=== PATIENT | male | born 1965 | race Caucasian/White ===

== ENCOUNTER 2017-05-27 19:26 | Observation (INO) | payer BC ==
[2017-05-27] MEDS ORDERED: Sodium Chloride 0.9% 1,000 ML PRIMARY IV ONE (19:29)
[2017-05-27] MEDS ORDERED: NORMAL SALINE 10 ML SYRINGE FLUSH IVP PRN ×2 (19:29→22:44)
[2017-05-27 19:35] LABS: BASOPHILS # (AUTO) 0.08 10*3/UL; BASOPHILS % (AUTO) 1.1 % (0-1); EOSINOPHILS # (AUTO) 0.16 10*3/UL; EOSINOPHILS % (AUTO) 2.2 % (0-8); HEMATOCRIT 44.1 % (42.0-52.0); HEMOGLOBIN 15.3 g/dL (14.0-18.0); LYMPHOCYTES # (AUTO) 2.74 10*3/uL; MEAN CORPUSCULAR HEMOGLOBIN 31.3 PG (27-31); MEAN CORPUSCULAR HGB CONC 34.7 g/dL (33-37); MEAN CORPUSCULAR VOLUME 90.2 FL (80-90); MEAN PLATELET VOLUME 10.3 FL (7.4-12.2); MONOCYTES # (AUTO) 0.57 10*3/UL (0.3-0.8); NEUTROPHILS # (AUTO) 3.59 10*3/UL; NEUTROPHILS % (AUTO) 50.3 % (50-80); RED BLOOD COUNT 4.89 10^6/uL (4.70-6.10)
[2017-05-27 19:36] LABS: PLATELET MORPHOLOGY COMMENT NORMAL MORPHOLOGY (NORM); RBC MORPHOLOGY COMMENT NORMAL MORPHOLOGY (NORM); WBC MORPHOLOGY COMMENT NORMAL MORPHOLOGY (NORM)
--- NOTE | 2017-05-27 19:38 | EKG ---
[address] [address] Measurements Intervals [place] Rate: 75 P: 71 FL: 119 QRS: 93 QRSD: 109 T: 71 QT: 384 QTc: 413 Interpretive Statements SINUS RHYTHM WITH SHORT FL INTERVAL BORDERLINE RIGHT AXIS DEVIATION No previous ECG available for comparison Electronically Signed On 05-29-17 15:17:50 MDT by Juvenal Fay [email or web address]
[2017-05-27 19:41] LABS: BLOOD UREA NITROGEN 11 mg/dL (7-22); CALCIUM 9.8 mg/dL (8.7-10.7); EST GLOMERULAR FILTRATION > 60 (>60 ml/min/1.73m(2)); SERUM ALBUMIN 4.5 g/dL (3.5-4.8)
[2017-05-27 19:53] LABS: CREATINE KINASE MB 1.25 NG/ML (0.00-5.00)
[2017-05-27 19:54] LABS: TROPONIN I < 0.012 ng/mL (< 0.040)
[2017-05-27 20:22] LABS: BILIRUBIN,URINE NEGATIVE (NEG); CLARITY,URINE CLEAR (CLEAR); COLOR,URINE YELLOW; GLUCOSE, URINE (UA) NEGATIVE (NEG); NITRATE,URINE NEGATIVE (NEG); OCCULT BLOOD,URINE NEGATIVE (NEG); PROTEIN,URINE NEGATIVE (NEG); UROBILINOGEN,URINE 0.2 EU/dL (0.2)
[2017-05-27 20:23] LABS: URINE SAMPLE TYPE CLEAN CATCH URINE
--- NOTE | 2017-05-27 20:46 | DI ---
HISTORY: Syncope. Headache. COMPARISON: None available. TECHNIQUE: Unenhanced images of the brain were obtained and submitted for interpretation. 39 images . FINDINGS: There is no acute infarct, intracranial hemorrhage, or mass effect. There is no hydroceph alus, or significant midline shift. The basal cisterns are not effaced. There is partial opacification of the left mastoid air cells. The remainder of the visualized parana kristin sinuses appear well-aerated. IMPRESSION: 1. No acute intracranial hemorrhage. Senescent change. Recommend MRI if clinical symptoms persist.
--- NOTE | 2017-05-27 20:46 | DI ---
HISTORY: Chest pain. COMPARISON: None available. TECHNIQUE: Frontal image obtained. FINDINGS: The cardiac silhouette is not enlarged. There is no focal consolidation or pleural effusi on. Questionable linear-appearing density in the left lung base could be due to atelectasis. IMPRESSION: 1. Questionable linear-appearing density in the left lung base could be due to atelectasis.
[2017-05-27] MEDS ORDERED: LIDOCAINE W/ SODIUM BICARB 0.5 ML SYR SUBD PRN (22:44)
--- NOTE | 2017-05-27 22:47 | PDOC ---
General Adult HPI - General Chief Complaint: Chest Pain Stated Complaint: CHEST Date Seen by Provider: 05/27/17 Time Seen by Provider: 19:25 Source: POSITIVE: Patient, EMS Exam Limitations: POSITIVE: No limitations Nurse's Notes Reviewed & Considered: Yes EMS Report Reviewed & Considered: Verbal - History of Present Illness Initial Comment: The patient is a 51-year-old male who is brought to the emergency department by ambulance after he passed out. 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 He states that he's been having some headache off and on for the past week or so. This afternoon his headaches seem to intensify and he states that he started feeling nauseated and actually vomited a couple of times. Around that time he also started feeling very lightheaded like he was going to pass out. He states that he rested for a moment and drank some water and was feeling a little bit better. He states that he went to get out of a truck when he became very lightheaded and that's the last thing he remembers. His coworker states that he passed out completely and his eyes rolled back in his head. He was a little bit confused and combative and EMS was called. By the time EMS arrived the patient was awake and alert and answering questions properly. In route he did start to complain of some chest pain and a 12-lead EKG was done showing normal sinus rhythm with no acute changes. He was given aspirin in route per EMS. On arrival the patient continues to have headache. His chest pain has basically resolved. He denies any numbness or weakness in his arms or legs however he does report prior to the ambulance arrival he was having some numbness in his left arm. He does not have any known medical history. He does smoke. Have you received a tetanus shot in the past 10 years?: Unknown - Patient Allergies Allergies/Adverse Reactions: Allergies Allergy/AdvReac Type Severity Reaction Status Date / Time Penicillins Allergy ITCHING Verified 05/27/17 19:33 BEE STINGS Allergy HIVES Uncoded 05/27/17 19:33 Past Medical History Past Medical History Reviewed: Other (please comment) (Written nursing documentation reviewed) ROS - Limitations ROS Limitations: No Limitations Constitution: DENIES: Chills, Fever Cardiovascular: REPORTS: Chest Pain (Chest pain in route in the ambulance, none currently). DENIES: Heart Racing, Heart Palpitations, Edema Respiratory: REPORTS: Shortness Of Breath (He states that on scene he felt like he couldn't breathe however this has improved) Neurological: REPORTS: Headache, Numbness (Did have some numbness in his left arm which has resolved). DENIES: Weakness Gastrointestinal: REPORTS: Nausea, Vomitting. DENIES: Abdominal Pain Musculoskeletal: REPORTS: Denies MS Symptoms Eyes: REPORTS: Denies Symptoms ENT: REPORTS: Denies Symptoms Skin: DENIES: Rash General Adult Exam - General Appearance General Appearance: POSITIVE: Alert, Cooperative, No Acute Distress - HEENT HEENT: POSITIVE: Head Inspection Nml, Eyes Inspection Nml, Ears Inspection Nml, Nose Inspection Nml - Neck Neck: POSITIVE: Normal Inspection. 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 Chest x-ray shows some linear atelectasis in the bases otherwise normal per radiologist. Lab Results Reviewed: Yes Lab Results:: Laboratory Results 05/27/17 05/27/17 Range/Units 19:33 20:19 WBC 7.15 (4.8-10.8) 10^3/uL RBC 4.89 (4.70-6.10) 10^6/uL Hgb 15.3 (14.0-18.0) g/dL Hct 44.1 (42.0-52.0) % MCV 90.2 H (80-90) FL MCH 31.3 H (27-31) PG MCHC 34.7 (33-37) g/dL RDW Std Deviation 44.3 (39-50) fL RDW Coeff of Tristen 13.7 (11.5-14.5) % Plt Count 232 (140-350) 10*3/uL MPV 10.3 (7.4-12.2) FL Immature Gran % (Auto) 0.1 (0-5) % Neut % (Auto) 50.3 (50-80) % Lymph % (Auto) 38.3 (10-50) % [place] % (Auto) 8.0 (5-15) % Eos % (Auto) 2.2 (0-8) % Baso % (Auto) 1.1 H (0-1) % Immature Gran # (Auto) 0.01 10*3/UL Neut # (Auto) 3.59 10*3/UL Lymph # (Auto) 2.74 10*3/uL [place] # (Auto) 0.57 (0.3-0.8) 10*3/UL Eos # (Auto) 0.16 10*3/UL Baso # (Auto) 0.08 10*3/UL WBC Morphology Comment Normal morphology (NORM) Plt Morphology Comment Normal morphology (NORM) RBC Morph Comment Normal morphology (NORM) D-Dimer < 0.19 (0.00-0.59) mg/L Sodium 139 (135-145) meq/L Potassium 3.8 (3.8-5.2) meq/L Chloride 107 (98-112) meq/L Carbon Dioxide 19 L (23-33) meq/L Anion Gap 13 (5-20) BUN 11 (7-22) mg/dL Creatinine 1.0 (0.70-1.50) mg/dL Estimated GFR > 60 (>60 ml/min/1.73m(2)) BUN/Creatinine Ratio 11.00 (6-20) Glucose 86 (78-110) mg/dL Calculated Osmolality 285.0 (267-292) mOsm/kg Calcium 9.8 (8.7-10.7) mg/dL Total Bilirubin 1.1 (0.3-1.2) mg/dL AST 35 (21-57) IU/L ALT 29 (21-72) IU/L Alkaline Phosphatase 63 (38-126) IU/L CK-MB (CK-2) 1.25 (0.00-5.00) NG/ML Troponin I < 0.012 (< 0.040) ng/mL Total Protein 7.2 (6.1-8.0) g/dL Albumin 4.5 (3.5-4.8) g/dL Globulin 2.7 (2.50-4.10) g/dL Albumin/Globulin Ratio 1.60 (1.3-2.0) mg/g Ur Collection Type Clean catch urine Urine Color Yellow Urine Clarity Clear (CLEAR) Urine pH 7.0 (5.0-8.5) Ur Specific [place] 1.010 (1.005-1.030) Urine Protein Negative (NEG) mg/dl Urine Glucose (UA) Negative (NEG) mg/dL Urine Ketones Negative (NEG) Urine Occult Blood Negative (NEG) Urine Nitrate Negative (NEG) Urine Bilirubin Negative (NEG) Urine Urobilinogen 0.2 (0.2) EU/dL Ur Leukocyte Esterase Negative (NEG) Ur Culture Indicated? Culture not set EKG Interpreted/Reviewed By Me:: Yes EKG Interpretation:: POSITIVE: Normal Sinus Rhythm, Normal Rate, Normal QRS, Normal ST/T - Patient's Progress MDM / ED Course: The patient had received aspirin in route per EMS. His initial EKG shows normal sinus rhythm with no acute changes. His lab work is all essentially normal with a normal troponin and normal d-dimer. CT scan of his head was also normal. Chest x-ray is normal. He did receive 1 L bolus of normal saline here in the emergency department. He is feeling slightly better however still just does not feel well in general. His clinical presentation is most consistent with syncopal episode possibly secondary to heat exhaustion and vagal reaction. He also did have some chest pain after the syncopal episode. Decision was made to admit the patient for further cardiac monitoring. He did have a headache on presentation as well with a normal CT. - Consult Counseled: POSITIVE: Patient, RE: Lab Results, RE: Radiology Results, RE: DX, RE : Need for F/U Patient Care Time - Estimated PCT Patient Care Time (In Minutes): 30 Vital Signs - Recent Vital Signs Vital Signs: Vital Signs (Last 8 hours) Temp Resp BP Pulse Ox 05/27/17 19:29 97.6 F 16 160/85 95 - VS Reviewed Vital Signs Reviewed: Yes Discharge Clinical Impression: Chest pain, Syncope, Heat exhaustion, Headache Discharge Disposition: Admit to Inpatient Condition: Stable Date Decision to Admit to Inpatient: 05/27/17 Time Decision to Admit to Inpatient: 22:35
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
[2017-05-27] MEDS ORDERED: ACETAMINOPHEN 325 MG TABLET PO PRN (23:19)
[2017-05-27] MEDS: Sodium Chloride 0.9% 1,000 ML PRIMARY IV SCH (23:26)
[2017-05-28 03:39] LABS: BLOOD UREA NITROGEN 10 mg/dL (7-22); BUN/CREATININE RATIO 14.28 (6-20); CALCIUM 8.2 mg/dL (8.7-10.7); EST GLOMERULAR FILTRATION > 60 (>60 ml/min/1.73m(2))
--- NOTE | 2017-05-28 08:21 | PDOC(PROG) ---
Date and Time of Service: 05/28/2017 8:17 AM Interval History: Subjective Patient feels better compared to yesterday. Still have some soreness in his muscles but otherwise he is better. No more vomiting. No chest pain. Still having some headaches but is better. Objective : Data - Labs CBC and BMP: 05/27/17 19:33 05/28/17 03:25 Labs - Last 24 Hours: Laboratory Results 05/28/17 Range/Units 03:25 Sodium 143 (135-145) meq/L Potassium 3.7 L (3.8-5.2) meq/L Chloride 113 H (98-112) meq/L Carbon Dioxide 23 (23-33) meq/L Anion Gap 7 (5-20) BUN 10 (7-22) mg/dL Creatinine 0.7 (0.70-1.50) mg/dL Estimated GFR > 60 (>60 ml/min/1.73m(2)) BUN/Creatinine Ratio 14.28 (6-20) Glucose 100 (78-110) mg/dL Calculated Osmolality 294.0 H (267-292) mOsm/kg Calcium 8.2 L (8.7-10.7) mg/dL Troponin I < 0.012 (< 0.040) ng/mL Objective : Exam - General General Appearance: No Acute Distress, Thin - Head Head Exam: Normal Inspection, Atraumatic - Eye Eye Exam: Normal Appearance - ENT ENT Exam: Normal Exam - Neck Neck Exam: Normal Inspection - Respiratory Respiratory Exam: Clear to Auscultation - Bilaterally - Cardiovascular Cardiovascular Exam: RRR - GI/Abdominal GI/Abdominal Exam: Normal Bowel Sounds, Non Tender, Non Distended, Soft - Rectal Rectal Exam: Deferred - External Exam: Deferred - Extremities Extremities Exam: Normal Inspection - Back Back Exam: Normal Inspection - Neurological Neurological Exam: Alert, Oriented x 3, CN II-XII Intact, Moves All Extremities Equally - Psychiatric Psychiatric Exam: Normal Affect Assessment and Plan - Patient Problems (1) Syncope Current Visit: Yes Status: Acute Comment: Probably secondary to heat exhaustion and dehydration. I think he is better today, I think we can stop the fluid. He'll have an echocardiogram today and the first part of the stress test today. (2) Chest pain Current Visit: Yes Status: Acute Comment: This is resolved. It's atypical pain. His cardiac enzymes so far is negative. he will Have the first part of stress test today and the second tomorrow. (3) Headache Current Visit: Yes Status: Acute Comment: CT of the head was negative. Continue watching his blood pressure. He did have an MRI done this morning still waiting for the result.
[2017-05-28] MEDS: ASPIRIN 325 MG EC TABLET PO SCH (08:22)
--- NOTE | 2017-05-28 08:53 | DI ---
MRI BRAIN SCAN WITHOUT CONTRAST, 05/28/2017 7:00 AM: Clinical History: Headache. Syncope. Previous Exam: None at this facility. Sequences: Sagittal T1; Axial NICOLASA T2 and FLAIR. Axial diffusion weighted images with ADC mapping were also performed. The 4th, 3rd, and lateral ventricles are of normal size, shape, position, and contour for this patien t's age. There are small focal punctate hyperintensities located in the white matter of the right occ ipital lobe, at the right frontoparietal junction, and in the left frontal lobe. These measure less t grant 5 mm in diameter and are of uncertain etiology or clinical significance. There is moderate cerebr al atrophy. There is no cerebellopontine angle mass. Diffusion weighted imaging with ADC mapping is n ormal. There are no extracerebral mantels or shift of the midline structures. The paranasal sinuses a re normal. Readin. There are very few small punctate hyperintensities located in the right occipital lobe, the left frontal lobe, and the right frontoparietal junction of uncertain significance and etiology. 2. No cerebellopontine angle mass is present. 3. Moderate cerebral atrophy. 4. Diffusion weighted imaging with ADC mapping is normal.
--- NOTE | 2017-05-28 08:56 | DI ---
MR ANGIOGRAPHY OF THE [place], 05/28/2017 7:00 AM: Clinical History: Headache. Syncope. Previous Exam: None at this facility. High resolution axial 3D thin slice time of flight scans are performed for the arterial phase. 3D MIP S reconstructions are obtained. The left vertebral artery is dominant. There is no basilar tip aneurysm or aneurysm arising from the vertebral-basilar branches. No posterior communicating arteries are identified. The anterior communic ating artery is normal. The A1and A2, and the M1 through M3 branches bilaterally are normal. Reading: Normal MR angiogram scan of the [place].
[2017-05-28] MEDS: Sodium Chloride 0.9% 1,000 ML PRIMARY IV SCH (09:14)
[2017-05-29 04:27] VITALS: RESP 18
[2017-05-29] MEDS: ASPIRIN 325 MG EC TABLET PO SCH (08:56)
--- NOTE | 2017-05-29 09:06 | STRESSTEST ---
[facility] Interpretive Statements Patient exercised according to Bjorn protocol his baseline BP was 118/84 heart rate was 69 beats/min Baseline EKG showed Right axis deviation, patient exercised for 9:44 min Maximum BP was 158/90 maximum heart rate was 138 which is 81% of the predicted, No signifcant EKG changes. However there were some baseline interferrence., Conclusion.Test is suboptimal, but I dont see signifcant EKG changes. [email or web address]
--- NOTE | 2017-05-29 09:23 | PDOC(PROG) ---
Date and Time of Service: 05/29/2017 9:17 AM Interval History: Subjective Patient said he's feeling tired but otherwise denying chest pain, no nausea. No shortness of breath. Minimal headaches. Objective : Data - Labs CBC and BMP: 05/27/17 19:33 05/28/17 03:25 Labs - Last 24 Hours: Laboratory Results 05/28/17 Range/Units 09:35 Troponin I < 0.012 (< 0.040) ng/mL Objective : Exam - General General Appearance: No Acute Distress, Cooperative, Thin - Head Head Exam: Normal Inspection, Atraumatic - Eye Eye Exam: Normal Appearance - ENT ENT Exam: Normal Exam - Neck Neck Exam: Normal Inspection - Respiratory Respiratory Exam: Clear to Auscultation - Bilaterally - Cardiovascular Cardiovascular Exam: RRR - GI/Abdominal GI/Abdominal Exam: Normal Bowel Sounds, Non Tender, Non Distended, Soft - Rectal Rectal Exam: Deferred - External Exam: Deferred - Extremities Extremities Exam: Normal Inspection - Back Back Exam: Normal Inspection - Neurological Neurological Exam: Alert, Oriented x 3, CN II-XII Intact - Psychiatric Psychiatric Exam: Normal Affect - Integumentary Integumentary Exam: Normal Color Assessment and Plan - Patient Problems (1) Syncope Current Visit: Yes Status: Acute Comment: Patient had an echocardiogram which per my discussion with the entertainment & media correspondent was normal. He had the first part of the stress test the test was stopped because of fatigue but he was close to the target heart rate it was 81% of the predicted. He exercised for 9 minutes and 44 seconds. I didn't see significant EKG changes. His Mets were 10.6. I calculated his Chan treadmill score as being low risk. He had a good heart recovery in response to exercise. No arrhythmias were noted. (2) Chest pain Current Visit: Yes Status: Acute Comment: This is resolved looks atypical to musculoskeletal, enzymes were negative, the echocardiogram was negative. Waiting for the imaging test. I didn't see a significant EKG changes on the exercise stress test. (3) Headache Current Visit: Yes Status: Acute Comment: The MRI that he had yesterday did not show stroke and no aneurysm. There was some hyperdensities present on the MRI so I spoke with the Dr. Jacinto the neurolhist [place] she reviewed the MRI and she thought these are nonspecific may be related to his age and smoking but she didn't think that those need to be followed up.
[2017-05-29 12:55] VITALS: TEMP 98.2
--- NOTE | 2017-05-29 13:10 | DI ---
2 DAY EDILBERTO STRESS & REST MYOCARDIAL PERFUSION SCANS, 05/28/2017-05/29/2017: Clinical History: Chest pain. Previous Exam: None at this facility. Monitoring Physician: Dr. Jessy Ramos. Dose: Stress dose: 35 mCi on 05/29/2017. Rest dose: 34 mCi on 05/28/2017. Quantitative Analysis: [employer] program with low dose limited CT chest scan attenuation correctio n. Exam Quality: Excellent. Rejected Beats: Stress = 2%; Rest = 3%. HR: Stress = 49-53 b/m; Rest = 55-5 9 b/m. The heart rates indicate the patient has sinus bradycardia. Left ventricular chamber sizes are normal at stress and rest. Transient ischemic dilatation ratio is 0.98 (normal Edilberto TID <= 1.22; normal Lexiscan TID <= 1.33). Stress LVEF: 67%; rest LVEF: 65%. Both the attenuated and non-attenuated scans show a reversible defect in the anteroseptal region extending to the mid septal region. All other olivares perfuse normally at stress and rest. There is suggestion o f slight hypokinesis of the septum at stress but all other olivares show normal kinesis at stress and re st. There is normal wall thickening at stress and rest. Limited CT scans of the heart show calcificat ions in the proximal portion of the left circumflex artery. There may also be calcifications in the l eft mainstem. There are no lung nodules or enlarged nodes. Readin. Normal stress and rest left ventricular chamber size. Transient ischemic dilatation ratio is norm al at 0.98. 2. Normal stress and rest LVEF values of 67% and 65%, respectively. 3. Both the attenuated and non-attenuated scans show ischemic change involving the midportion of the septum in the anteroseptal region. The remaining olivares perfuse normally at stress and rest. 4. There is perhaps minimal hypokinesis of the septum at stress. All other olivares contract vigorously at stress and rest and there is normal myocardial thickening at stress and rest. 5. There are coronary artery calcifications in the left circumflex artery and possibly in the left m ainstem. 6. This patient apparently has sinus bradycardia both at the time of the stress and rest acquisition s.
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
== END 2017-05-29 16:24 | disposition home or self-care (01) ==
LOC: ER 19:26 → MED/SURG 21:24 → INTOOBSV 21:24 → UNDOADMOB 21:24 → MED/SURG 22:43 → UNDODISOB 05-29 16:24
PROVIDERS: ADMIT Internal Medicine; ATTEND Internal Medicine
DX: R07.9 Chest pain, unspecified (principal); R55 Syncope and collapse; T67.5XXA Heat exhaustion, unspecified, initial encounter; R51 Headache; R94.39 Abnormal result of other cardiovascular function study; F17.210 Nicotine dependence, cigarettes, uncomplicated
CPT/HCPCS: 36415; 70450; 70544; 70551; 71010; 78452; 80048; 80053; 81003; 82553; 84484 ×2; 85025; 85379; 93005; 93010; 93016; 93017; 93018; 93306; 94761 ×2; 96360; 96361; 99284 ×2; A9500; J7030